=== PATIENT | male | born 1990 | race Caucasian/White ===

== ENCOUNTER 2024-12-02 23:31 | Inpatient (IN) | payer BC, OTHER ==
[~2024-12-02] VITALS: Ht 185.4 cm; Wt 91.5 kg
--- NOTE | 2024-12-02 23:44 | ED.PDOC ---
GI ASSESSMENT HPI Comments HPI: Poor Historian. 34-year-old male presents to emergency department for evaluation of two episodes of vomiting coffee-ground emesis color followed by periumbilical abdominal pain that is constant nonradiating. No alleviating or precipitating factors. Patient has normal stool color. No sick contacts. Past Medcial History: Denies any Past Surgical History: Appendectomy REVIEW OF SYSTEMS: CONSTITUTIONAL: Denies acute: fever, diaphoresis, chills, generalized weakness. HEAD: Denies acute: headache, photophobia Eyes: Denies acute: Double vision, vision loss, eye pain, eye discharge. EARS: Denies acute: tinnitus, hearing loss, ear discharge, ear pain, THROAT: Denies acute: sore throat, swelling, difficulty swallowing , pain with swallowing, change in voice. NECK: Denies acute: neck pain, neck swelling, stiff neck. HEART: Denies acute : chest pain, palpitations, LUNGS: Denies acute: SOB, wheezing, cough, hemoptysis ABDOMEN: Denies acute: , diarrhea, melena , hematemesis, hematochezia SKIN: Denies acute: rash, redness, lesions, itchiness. EXTREMITIES: Denies acute: calf pain, numbness, tingling, weakness, denies pain in extremity. Denies acute: Low back pain. Neuro: Denies acute: focal neurological deficit, motor or sensory focal neurological deficit, tremors, seizure like activity, confusion, dizziness, change in mental status, loss of bowel or bladder function, cauda equina like symptoms. : Denies acute: dysuria, hematuria, flank pain, increase in urinary frequency. PSYCH: Denies acute: hallucination, suicidal ideation, homicidal ideation. PHYSICAL EXAM: General: no acute distress, awake and alert. Head: normocephalic, atraumatic. Neck: supple, trachea is midline, no swelling. Throat: Normal phonation. Eyes:, no erythema, no purulent discharge, no proptosis, no icterus. Heart: regular rate, regular rhythm, no significant murmur appreciated. Lungs: no apparent respiratory distress, Able to speak in full sentences. No wheezing, no rhonchi, no crackles. No stridors Clear to auscultation bilaterally. Abdomen: Periumbilical tender to palpation, non distended, soft, no guarding, no rebound, + bowel sounds. Neuro: Awake, Alert, oriented to name, self, situation, follows commands GCS=15. Speech is normal. Skin: no petechia, no purpura, no cyanosis, non-pale, not jaundice. Lower extremities: --no - Pitting edema no deformity, no focal swelling, no calf TTP. Makes eye contact. moves all four extremities. Face: no apparent facial droop. Ambulating in the ED independently. Time Seen by MD: 23:34 Reviewed Notes: Nurses Notes, Medications, Allergies Allergies: Uncoded Allergies: EAR DROPS (Allergy, Unknown, 12/02/24) Home Meds Active Scripts Pantoprazole Sodium Sesquihydr (Protonix) 40 Mg Tab, 40 MG PO BID for 30 Days, #60 TAB Prov:LATA CASE RESIDENT 12/04/24 Sucralfate (CARAFATE) 1 Gm Tab, 1 GM OR TID for 30 Days, #90 TAB Prov:LATA CASE RESIDENT 12/04/24 Information Source: Patient Was a procedure done? Was a procedure done?: No GI differential Dx Differential Diagnosis: Constipation, Diverticular disease, Esophageal rupture, Esophagitis, Gastritis/PUD, Gastroenteritis, GI hemorrhage, Inflammatory BD, Ischemic Bowel, Mass, Anemia, Esophageal Varicies, Stress Ulcer, Other X-Ray, Labs, Meds, VS Vital Signs Date Time Temp Pulse Resp B/P (MAP) Pulse Ox O2 Delivery O2 Flow Rate FiO2 12/03/24 02:47 95 18 96 Room Air* 0 21 12/03/24 02:31 98.4 86 16 139/90 (106) 96 98.4 12/02/24 23:43 98.1 101 19 144/93 (110) 96 Lab Test 12/03/24 02:08 12/02/24 23:50 Range/Units Urine Color Colorless Yellow Urine Clarity Clear Clear Urine pH 6.5 5.0-9.0 Urine Specific [place] 1.003 1.001-1.035 Urine Protein Negative Negative Urine Ketones Negative Negative Urine Blood Negative Negative /uL Urine Nitrite Negative Negative Urine Bilirubin Negative Negative Urine Urobilinogen Normal Negative mg/dL Urine Leukocyte Esterase Negative Negative /uL Urine RBC 1 0 - 3 /hpf Urine Microscopic WBC < 1 0-3 /HPF Urine Squamous Epithelial Cells None seen <5 /hpf Urine Bacteria None seen None Seen /hpf Urine Glucose Normal Normal mg/dL Urine Opiates Screen Neg NEGATIVE Urine Fentanyl Screen Neg NEGATIVE Urine Barbiturates Screen Neg NEGATIVE Urine Phencyclidine Screen Neg NEGATIVE Urine Amphetamines Screen Neg NEGATIVE Urine Benzodiazepines Screen Neg NEGATIVE Urine Cocaine Screen Neg NEGATIVE Urine Cannabinoids Screen Neg NEGATIVE White Blood Count 10.0 4.4-10.8 10^3/uL Red Blood Count 5.05 4.5-5.90 10^6/uL Hemoglobin 15.2 13.5-17.5 g/dL Hematocrit 44.5 41.0-53.0 % Mean Corpuscular Volume 88.2 80.0-100.0 fL Mean Corpuscular Hemoglobin 30.0 28.0-32.0 pg Mean Corpuscular Hemoglobin Concent 34.1 32.0-36.0 g/dL Red Cell Distribution Width 12.9 11.8-14.3 % Platelet Count 271 140-450 10^3/uL Mean Platelet Volume 7.7 6.9-10.8 fL Neutrophils (%) (Auto) 63.3 37.0-80.0 % Lymphocytes (%) (Auto) 23.1 10.0-50.0 % Monocytes (%) (Auto) 7.3 0.0-12.0 % Eosinophils (%) (Auto) 5.3 0.0-7.0 % Basophils (%) (Auto) 1.0 0.0-2.0 % Neutrophils # (Auto) 6.3 1.6-8.6 10 ^3/uL Lymphocytes # (Auto) 2.3 0.4-5.4 10 ^3/uL Monocytes # (Auto) 0.7 0-1.3 10 ^3/uL Eosinophils # (Auto) 0.5 0-0.8 10 ^3/uL Basophils # (Auto) 0.1 0-0.2 10 ^3/uL Nucleated Red Blood Cells 0.0 % Sodium Level 139 136-145 mmol/L Potassium Level 3.5 3.5-5.1 mmol/L Chloride Level 102 98-107 mmol/L Carbon Dioxide Level 30 20-31 mmol/L Anion Gap 7 5-15 Blood Urea Nitrogen 9 9-23 mg/dL Creatinine 1.06 0.700-1.30 mg/dL Glomerular Filtration Rate Calc 96 >90 mL/min BUN/Creatinine Ratio 8.5 L 10.0-20.0 Serum Glucose 101 74-106 mg/dL Lactic Acid Level 1.6 0.4-2.0 mmol/L Calcium Level 10.2 8.7-10.4 mg/dL Total Bilirubin 0.5 0.2-1.0 mg/dL Aspartate Amino Transferase (AST) 22 13-40 U/L Alanine Aminotransferase (ALT) 29 7-40 U/L Alkaline Phosphatase 84 46-116 U/L Total Protein 7.7 5.7-8.2 g/dL Albumin 4.7 3.2-4.8 g/dL Lipase 38 12-53 U/L [facility] [address] [address] Ph: [phone] DIAGNOSTIC IMAGING Diagnostic Imaging Report : [id number] Signed PATIENT: NICOLE AGUILAR ACCT: [id number] UNIT: [id number] : 1990 LOC: ER ROOM / BED: / AGE / SEX: 34 / M ADM STATUS: REG ER SERVICE [id number] ORDERING PHYSICIAN: ARTHUR STEPHENSON DO PROCEDURE(s): ABPL - CT AB PEL WO CON-NO ORAL OR IV REASON: abd pain ORDER NUMBER(s): [id number], ACCESSION NUMBER(s): [id number] CLINICAL HISTORY: abd pain TECHNIQUE: CT of the abdomen and pelvis was performed without intravenous contrast. This exam was performed according to our departmental dose optimization program. Up-to-date CT equipment and radiation dose reduction techniques are utilized as appropriate. CTDI: 8.44 DLP: 469.68 WID: COMPARISON: None FINDINGS: Lower Thorax: Unremarkable. Liver and Biliary system: Unremarkable. Spleen: Unremarkable. Adrenal Glands and Kidneys: Unremarkable. Pancreas and Retroperitoneum: Unremarkable. Aorta and Major Vessels: Unremarkable. Bowel, Mesentery and Peritoneal space: The small and large bowel loops are normal in caliber. There is mild distal colonic diverticulosis. Prior appendectomy. There is no free air or fluid collection. There is submucosal fatty deposition throughout the large bowel. Pelvis: Tiny dystrophic ossifications in the right prostate gland, otherwise unremarkable. Abdominal wall and Osseous Structures: Small fat containing umbilical hernia. No destructive osseous lesion. IMPRESSION: 1. No noncontrast evidence of acute abnormality. 2. Submucosal fatty deposition in the large bowel which may be incidental or related to prior inflammatory bowel disease. 3. Prior appendectomy. 4. Mild distal colonic diverticulosis. ATED BY: CLARISSE ABAD MD DICTATED DATE/TIME: 12/03/24115 SIGNED BY: CLARISSE ABAD MD SIGNED DATE/TIME: 12/03/24115 CC: Time of 1ST Reevaluation: 00:00 Reevaluation 1ST: Unchanged Patient Education/Counseling: Diagnosis, Treatment Family Education/Counseling: No Family Present Additional Information Patient presented with the above HPI. Hematemesis and abdominal pain workup was initiated. patient was found with the above mentioned diagnosis. the following medications were ordered: Protonix, Zofran, IV fluids the following tests were ordered: CT Abdomen/pelvis w/o contrast, EKG, UA, drug screen, lipase, lactic acid, CMP, CBC Patient ED course and VS have been stabilized. Patient has been reassessed in the ED and remained in a stable condition. Pertinent incidental findings were discussed with the patient and/or family. Patient/family voices understanding and is agreeable with plan. Patient has been observed in the ED adequate length of time to insure improvement/stability. Escalation of care considered: Consideration of escalation to observation or admission Patient was ADMITTED to the medicine team for further evaluation and treatment of their presentation. All the reports of any imaging studies that were ordered by myself were reviewed by myself. Departure 1 Departure Time of Disposition: 02:54 Impression: Primary Impression: Abdominal pain Additional Impressions: Nausea and vomiting GI bleed Disposition: ADMITTED INPATIENT Admit to: Tele Condition: Guarded e-Prescriptions Pantoprazole Sodium Sesquihydr (Protonix) 40 Mg Tab 40 MG PO BID for 30 Days, #60 TAB Prov: LATA CASE RESIDENT 12/04/24 Sucralfate (CARAFATE) 1 Gm Tab 1 GM OR TID for 30 Days, #90 TAB Prov: LATA CASE RESIDENT 12/04/24 Discharged With: Self Critical Care Note Critical Care Time?: No I personally scribed for ARTHUR STEPHENSON DO ([email or web address]) on 12/03/24 at 00:07. Electronically submitted by Franco Abel [email or web address]). I personally scribed for ARTHUR STEPHENSON DO ([email or web address]) on 12/03/24 at 01:40. Electronically submitted by Franco Abel [email or web address]). ARTHUR STEPHENSON DO Dec 02, 2024 23:44
[2024-12-03] VITALS (8 sets, daily range): BP systolic 112–132; BP diastolic 77–102; PULSE 65–95; RESP 16–18; TEMP 97.4–97.6; O2SAT 94–98
[2024-12-03 00:15] LABS: Basophils # (auto) 0.1 10 ^3/uL (0-0.2); Eosinophils # (auto) 0.5 10 ^3/uL (0-0.8); Eosinophils % (auto) 5.3 % (0.0-7.0); Hematocrit 44.5 % (41.0-53.0); Hemoglobin 15.2 g/dL (13.5-17.5); Lymphocytes # (auto) 2.3 10 ^3/uL (0.4-5.4); Lymphocytes % (auto) 23.1 % (10.0-50.0); Mean Corpuscular Hgb Conc. 34.1 g/dL (32.0-36.0); Mean Corpuscular Volume 88.2 fL (80.0-100.0); Monocytes # (auto) 0.7 10 ^3/uL (0-1.3); Monocytes % (auto) 7.3 % (0.0-12.0); Neutrophils # (auto) 6.3 10 ^3/uL (1.6-8.6); Neutrophils % (auto) 63.3 % (37.0-80.0); Platelet Count (auto) 271 10^3/uL (140-450); Red Blood Cells 5.05 10^6/uL (4.5-5.90); Red Cell Distribution Width 12.9 % (11.8-14.3)
[2024-12-03 00:24] LABS: Alanine Aminotransferase 29 U/L (7-40); Alkaline Phosphatase 84 U/L (46-116); Anion Gap 7 (5-15); Aspartate Aminotransferase 22 U/L (13-40); BUN/Creatinine Ratio 8.5 (10.0-20.0); Blood Urea Nitrogen 9 mg/dL (9-23); Calcium 10.2 mg/dL (8.7-10.4); Carbon Dioxide 30 mmol/L (20-31); Chloride 102 mmol/L (98-107); Glucose 101 mg/dL (74-106); Lipase 38 U/L (12-53); Sodium 139 mmol/L (136-145)
[2024-12-03 00:25] LABS: Albumin 4.7 g/dL (3.2-4.8); Bilirubin, Total 0.5 mg/dL (0.2-1.0); Total Protein 7.7 g/dL (5.7-8.2)
[2024-12-03 00:29] LABS: Potassium 3.5 mmol/L (3.5-5.1)
--- NOTE | 2024-12-03 01:19 | DVH ---
CLINICAL HISTORY: abd pain TECHNIQUE: CT of the abdomen and pelvis was performed without intravenous contrast. This exam was per formed according to our departmental dose optimization program. Up-to-date CT equipment and radiation dose reduction techniques are utilized as appropriate. CTDI: 8.44 DLP: 469.68 WID: COMPARISON: None FINDINGS: Lower Thorax: Unremarkable. Liver and Biliary system: Unremarkable. Spleen: Unremarkable. Adrenal Glands and Kidneys: Unremarkable. Pancreas and Retroperitoneum: Unremarkable. Aorta and Major Vessels: Unremarkable. Bowel, Mesentery and Peritoneal space: The small and large bowel loops are normal in caliber. There i s mild distal colonic diverticulosis. Prior appendectomy. There is no free air or fluid collection. T here is submucosal fatty deposition throughout the large bowel. Pelvis: Tiny dystrophic ossifications in the right prostate gland, otherwise unremarkable. Abdominal wall and Osseous Structures: Small fat containing umbilical hernia. No destructive osseous lesion. IMPRESSION: 1. No noncontrast evidence of acute abnormality. 2. Submucosal fatty deposition in the large bowel which may be incidental or related to prior inflamm atory bowel disease. 3. Prior appendectomy. 4. Mild distal colonic diverticulosis.
[2024-12-03] MEDS: PANTOPRAZOLE 40 MG/10 ML VIAL INJ IV ONE (02:44)
[2024-12-03] MEDS: ONDANSETRON HCL 4 MG/2 ML VIAL IV ONE (02:44)
[2024-12-03] MEDS: SODIUM CHLORIDE 0.9% 1,000 ML IV ONE (02:45)
[2024-12-03 02:46] LABS: Urine Bacteria None Seen /hpf (None Seen)
[2024-12-03] MEDS: HYDROcodone-ACET 5/325MG TAB PO ONE (03:00)
[2024-12-03 03:04] LABS: Urine Blood Negative /uL (Negative); Urine Clarity Clear (Clear); Urine Color Colorless (Yellow); Urine Protein, UAD Negative (Negative); Urine Specific Gravity 1.003 (1.001-1.035); Urine Squamous Epithelial Cell None Seen /hpf (<5); Urine Urobilinogen Normal (Negative); Urine WBC < 1 /HPF (0-3); Urine pH 6.5 (5.0-9.0)
[2024-12-03 03:05] LABS: Opiate Scree,Urine Neg (NEGATIVE)
[2024-12-03 03:13] LABS: Amphetamine Screen, Urine Neg (NEGATIVE); Barbiturate Scree,Urine Neg (NEGATIVE); Benzodiazephine Screen, Urine Neg (NEGATIVE); Cannabinoid Screen, Urine Neg (NEGATIVE); Cocaine Screen, Urine Neg (NEGATIVE); Phencyclidine Screen, Urine Neg (NEGATIVE)
[2024-12-03] MEDS ORDERED: ACETAMINOPHEN 325 MG TAB PO PRN (04:00)
[2024-12-03] MEDS ORDERED: ONDANSETRON HCL 4 MG/2 ML VIAL IV PRN (04:00)
[2024-12-03 04:29] LABS: Hematocrit 43.3 % (41.0-53.0); Hemoglobin 14.7 g/dL (13.5-17.5)
[2024-12-03 04:44] LABS: INR 1.02 (0.9-1.15); Partial Thromboplastin Time 28.8 SEC (24.5-34.5); Prothrombin Time 10.8 sec (9.3-11.8)
--- NOTE | 2024-12-03 05:08 | DVHHP2 ---
History of Present Illness Reason for Visit: Abdominal pain History of Present Illness 34-year-old male presents for evaluation of abdominal pain. Patient reports having two episodes of coffee-ground emesis today in the morning. He states that subsequently developed mid abdominal pain which is cramping in nature. Currently denies nausea. Denies diarrhea. No cardiac or respiratory complaints. Past Medical History Denies Past Surgical History Appendectomy Family History Noncontributory Smoke: No ALCOHOL: none Drugs: None Lives: with Family Review of Systems Review of Systems Review of systems are currently negative otherwise addressed HPI. Allergies: Uncoded Allergies: EAR DROPS (Allergy, Unknown, 12/02/24) Medications Current Medications Medications Dose Ordered Sig/Brenda Route Start Time Stop Time Status Last Admin Dose Admin Pantoprazole Sodium 40 mg DAILY IV 12/03/24 10:00 Acetaminophen/ Hydrocodone Bitart 1 tab Q4HP PRN PO 12/03/24 04:00 Ondansetron HCl 4 mg Q4HP PRN IV 12/03/24 04:00 Acetaminophen 650 mg Q6HP PRN PO 12/03/24 04:00 Exam Vital Signs Vital Signs Date Time Temp Pulse Resp B/P (MAP) Pulse Ox O2 Delivery O2 Flow Rate FiO2 12/03/24 02:47 95 18 96 Room Air* 0 21 12/03/24 02:31 98.4 139/90 (106) 98.4 Exam Gen: 34-year-old male in mild distress. Skin: Warm, dry, normal color and texture, no rash. HEENT: Normocephalic atraumatic, mucous membranes moist and pink. Neck: Cervical and supraclavicular nodes normal without enlargement, trachea is midline, thyroid gland is normal without masses. Pulmonary: Clear to auscultation and percussion bilaterally. Cardiac: Regular rate and rhythm. No murmur Abdomen: Soft, nontender, nondistended, bowel sounds present all 4 quadrants, no guarding, no rigidity, no organomegaly. Extremities: No cyanosis, clubbing, no edema Neuro: Cranial nerves II through XII grossly intact, normal affect and speech, no focal motor deficits. Labs/Xrays ORDERING PHYSICIAN: ARTHUR STEPHENSON DO PROCEDURE(s): ABPL - CT AB PEL WO CON-NO ORAL OR IV REASON: abd pain ORDER NUMBER(s): [id number], ACCESSION NUMBER(s): [id number] CLINICAL HISTORY: abd pain TECHNIQUE: CT of the abdomen and pelvis was performed without intravenous contrast. This exam was performed according to our departmental dose optim ization program. Up-to-date CT equipment and radiation dose reduction techniques are utilized as appropriate. CTDI: 8.44 DLP: 469.68 WID: COMPARISON: None FINDINGS: Lower Thorax: Unremarkable. Liver and Biliary system: Unremarkable. Spleen: Unremarkable. Adrenal Glands and Kidneys: Unremarkable. Pancreas and Retroperitoneum: Unremarkable. Aorta and Major Vessels: Unremarkable. Bowel, Mesentery and Peritoneal space: The small and large bowel loops are normal in caliber. There is mild distal colonic diverticulosis. Prior appendectomy. There is no free air or fluid collection. There is submucosal fatty deposition throughout the large bowel. Pelvis: Tiny dystrophic ossifications in the right prostate gland, otherwise unremarkable. Abdominal wall and Osseous Structures: Small fat containing umbilical hernia. No destructive osseous lesion. IMPRESSION: 1. No noncontrast evidence of acute abnormality. 2. Submucosal fatty deposition in the large bowel which may be incidental or related to prior inflammatory bowel disease. 3. Prior appendectomy. 4. Mild distal colonic diverticulosis. ATED BY: CLARISSE ABAD MD DICTATED DATE/TIME: 12/03/24 0116 Labs Test 12/03/24 04:15 12/03/24 02:08 12/02/24 23:50 Range/Units Hemoglobin 14.7 13.5-17.5 g/dL Hematocrit 43.3 41.0-53.0 % Prothrombin Time 10.8 9.3-11.8 sec Prothrombin Time INR 1.02 0.9-1.15 Activated Partial Thromboplast Time 28.8 24.5-34.5 SEC Urine Color Colorless Yellow Urine Clarity Clear Clear Urine pH 6.5 5.0-9.0 Urine Specific [place] 1.003 1.001-1.035 Urine Protein Negative Negative Urine Ketones Negative Negative Urine Blood Negative Negative /uL Urine Nitrite Negative Negative Urine Bilirubin Negative Negative Urine Urobilinogen Normal Negative mg/dL Urine Leukocyte Esterase Negative Negative /uL Urine RBC 1 0 - 3 /hpf Urine Microscopic WBC < 1 0-3 /HPF Urine Squamous Epithelial Cells None seen <5 /hpf Urine Bacteria None seen None Seen /hpf Urine Glucose Normal Normal mg/dL Urine Opiates Screen Neg NEGATIVE Urine Fentanyl Screen Neg NEGATIVE Urine Barbiturates Screen Neg NEGATIVE Urine Phencyclidine Screen Neg NEGATIVE Urine Amphetamines Screen Neg NEGATIVE Urine Benzodiazepines Screen Neg NEGATIVE Urine Cocaine Screen Neg NEGATIVE Urine Cannabinoids Screen Neg NEGATIVE White Blood Count 10.0 4.4-10.8 10^3/uL Red Blood Count 5.05 4.5-5.90 10^6/uL Mean Corpuscular Volume 88.2 80.0-100.0 fL Mean Corpuscular Hemoglobin 30.0 28.0-32.0 pg Mean Corpuscular Hemoglobin Concent 34.1 32.0-36.0 g/dL Red Cell Distribution Width 12.9 11.8-14.3 % Platelet Count 271 140-450 10^3/uL Mean Platelet Volume 7.7 6.9-10.8 fL Neutrophils (%) (Auto) 63.3 37.0-80.0 % Lymphocytes (%) (Auto) 23.1 10.0-50.0 % Monocytes (%) (Auto) 7.3 0.0-12.0 % Eosinophils (%) (Auto) 5.3 0.0-7.0 % Basophils (%) (Auto) 1.0 0.0-2.0 % Neutrophils # (Auto) 6.3 1.6-8.6 10 ^3/uL Lymphocytes # (Auto) 2.3 0.4-5.4 10 ^3/uL Monocytes # (Auto) 0.7 0-1.3 10 ^3/uL Eosinophils # (Auto) 0.5 0-0.8 10 ^3/uL Basophils # (Auto) 0.1 0-0.2 10 ^3/uL Nucleated Red Blood Cells 0.0 % Sodium Level 139 136-145 mmol/L Potassium Level 3.5 3.5-5.1 mmol/L Chloride Level 102 98-107 mmol/L Carbon Dioxide Level 30 20-31 mmol/L Anion Gap 7 5-15 Blood Urea Nitrogen 9 9-23 mg/dL Creatinine 1.06 0.700-1.30 mg/dL Glomerular Filtration Rate Calc 96 >90 mL/min BUN/Creatinine Ratio 8.5 L 10.0-20.0 Serum Glucose 101 74-106 mg/dL Lactic Acid Level 1.6 0.4-2.0 mmol/L Calcium Level 10.2 8.7-10.4 mg/dL Total Bilirubin 0.5 0.2-1.0 mg/dL Aspartate Amino Transferase (AST) 22 13-40 U/L Alanine Aminotransferase (ALT) 29 7-40 U/L Alkaline Phosphatase 84 46-116 U/L Total Protein 7.7 5.7-8.2 g/dL Albumin 4.7 3.2-4.8 g/dL Lipase 38 12-53 U/L Assessment/Plan Assessment/Plan Assessment Acute abdominal pain ? Hematemesis Mild anemia Plan Admit the patient to [facility] [place] to the hospitalist GI consultation Clear liquid diet Gastric occult pending Continue treatment per orders. Plan discussed with: Patient My Orders Orders - JEMIMA SWEET Procedure Category Date Status Time * Gi D[facility] [employer] CONS 12/03/24 Transmitted 03:58 Pantoprazole PHA 12/03/24 In Process (Protonix) 10:00 Admit ADMIT 12/03/24 Transmitted 03:58 Hydrocodone-Acet PHA 12/03/24 In Process 5/325mg Tab ([place] 04:00 Ondansetron Hcl PHA 12/03/24 In Process (Zofran) 04:00 Complete Blood Count LAB 12/04/24 Verified 04:00 Condition: Stable OFE 12/03/24 In Process 03:58 Acetaminophen Tablet PHA 12/03/24 In Process (Tylenol Tablet) 04:00 Clear Liq Diet DIET 12/03/24 Transmitted Breakfast Bedrest With Bathroom OFE 12/03/24 In Process Privileg 03:58 Type And Screen BBK 12/03/24 In Process 03:58 Date of Service: Dec 03, 2024 Billing Provider: JEMIMA SWEET Common Visit Codes: [id number] INP/OBS CARE (MOD) JEMIMA SWEET Dec 03, 2024 05:08
[2024-12-03] MEDS: HYDROcodone-ACET 5/325MG TAB PO PRN (06:16)
[2024-12-03] MEDS: PANTOPRAZOLE 40 MG/10 ML VIAL INJ IV SCH ×2 (10:00→21:21)
[2024-12-03] MEDS ORDERED: LIDOCAINE 2% (LOCAL ANESTH.) PF 5ml SDV ONE (13:23)
[2024-12-03] MEDS ORDERED: PROPOFOL 10 MG/ML 20 ML IV ONE ×2 (13:23→13:32)
--- NOTE | 2024-12-03 13:24 | DVHINCON2 ---
Date of service: Dec 03, 2024 Referring Physician Yimi Rodriguez Reason for Consultation Upper GI bleed History of Present Illness 34-year-old male presents for evaluation of abdominal pain. Patient reports having two episodes of coffee-ground emesis today in the morning. He states that subsequently developed mid abdominal pain which is cramping in nature. Currently denies nausea. Denies diarrhea. No cardiac or respiratory complaints. Patient had his last endoscopy over 10 years ago in 2011. The patient does have history of intermittent alcohol use Past Medical History Past Medical History Denies Past Surgical History Past Surgical History Appendectomy Family History: Patient reports no known family medical history. Allergies: Uncoded Allergies: EAR DROPS (Allergy, Unknown, 12/02/24) Current Medications Current Medications Medications (Trade) Dose Ordered Sig/Brenda Route PRN Reason Start Time Stop Time Status Last Admin Pantoprazole Sodium (Protonix) 40 mg DAILY IV 12/03/24 10:00 12/03/24 10:00 Acetaminophen/ Hydrocodone Bitart ([place] 5/325MG Tab) 1 tab Q4HP PRN PO MODERATE PAIN (4-6 PAIN SCALE) 12/03/24 04:00 12/03/24 06:16 Ondansetron HCl (Zofran) 4 mg Q4HP PRN IV NAUSEA / VOMITING 12/03/24 04:00 Acetaminophen (Tylenol Tablet) 650 mg Q6HP PRN PO PAIN SCALE 1-3 OR TEMP>100.4 12/03/24 04:00 Vital Signs Vital Signs Date Time Temp Pulse Resp B/P (MAP) Pulse Ox O2 Delivery O2 Flow Rate FiO2 12/03/24 08:43 97.4 81 18 112/77 (89) 98 97.4 12/03/24 05:49 Room Air* 0 21 Physical Exam Gen: 34-year-old male in no distress. Skin: Warm, dry, normal color and texture, no rash. HEENT: Normocephalic atraumatic, mucous membranes moist and pink. Neck: Cervical and supraclavicular nodes normal without enlargement, trachea is midline, thyroid gland is normal without masses. Pulmonary: Clear to auscultation and percussion bilaterally. Cardiac: Regular rate and rhythm. No murmur Abdomen: Soft, nontender, nondistended, bowel sounds present all 4 quadrants, no guarding, no rigidity, no organomegaly. Extremities: No cyanosis, clubbing, no edema Neuro: Cranial nerves II through XII grossly intact, normal affect and speech, no focal motor deficits. Labs/Diagnostic Data Labs Test 12/03/24 04:15 12/03/24 02:08 12/02/24 23:50 Range/Units Hemoglobin 14.7 13.5-17.5 g/dL Hematocrit 43.3 41.0-53.0 % Prothrombin Time 10.8 9.3-11.8 sec Prothrombin Time INR 1.02 0.9-1.15 Activated Partial Thromboplast Time 28.8 24.5-34.5 SEC Urine Color Colorless Yellow Urine Clarity Clear Clear Urine pH 6.5 5.0-9.0 Urine Specific [place] 1.003 1.001-1.035 Urine Protein Negative Negative Urine Ketones Negative Negative Urine Blood Negative Negative /uL Urine Nitrite Negative Negative Urine Bilirubin Negative Negative Urine Urobilinogen Normal Negative mg/dL Urine Leukocyte Esterase Negative Negative /uL Urine RBC 1 0 - 3 /hpf Urine Microscopic WBC < 1 0-3 /HPF Urine Squamous Epithelial Cells None seen <5 /hpf Urine Bacteria None seen None Seen /hpf Urine Glucose Normal Normal mg/dL Urine Opiates Screen Neg NEGATIVE Urine Fentanyl Screen Neg NEGATIVE Urine Barbiturates Screen Neg NEGATIVE Urine Phencyclidine Screen Neg NEGATIVE Urine Amphetamines Screen Neg NEGATIVE Urine Benzodiazepines Screen Neg NEGATIVE Urine Cocaine Screen Neg NEGATIVE Urine Cannabinoids Screen Neg NEGATIVE White Blood Count 10.0 4.4-10.8 10^3/uL Red Blood Count 5.05 4.5-5.90 10^6/uL Mean Corpuscular Volume 88.2 80.0-100.0 fL Mean Corpuscular Hemoglobin 30.0 28.0-32.0 pg Mean Corpuscular Hemoglobin Concent 34.1 32.0-36.0 g/dL Red Cell Distribution Width 12.9 11.8-14.3 % Platelet Count 271 140-450 10^3/uL Mean Platelet Volume 7.7 6.9-10.8 fL Neutrophils (%) (Auto) 63.3 37.0-80.0 % Lymphocytes (%) (Auto) 23.1 10.0-50.0 % Monocytes (%) (Auto) 7.3 0.0-12.0 % Eosinophils (%) (Auto) 5.3 0.0-7.0 % Basophils (%) (Auto) 1.0 0.0-2.0 % Neutrophils # (Auto) 6.3 1.6-8.6 10 ^3/uL Lymphocytes # (Auto) 2.3 0.4-5.4 10 ^3/uL Monocytes # (Auto) 0.7 0-1.3 10 ^3/uL Eosinophils # (Auto) 0.5 0-0.8 10 ^3/uL Basophils # (Auto) 0.1 0-0.2 10 ^3/uL Nucleated Red Blood Cells 0.0 % Sodium Level 139 136-145 mmol/L Potassium Level 3.5 3.5-5.1 mmol/L Chloride Level 102 98-107 mmol/L Carbon Dioxide Level 30 20-31 mmol/L Anion Gap 7 5-15 Blood Urea Nitrogen 9 9-23 mg/dL Creatinine 1.06 0.700-1.30 mg/dL Glomerular Filtration Rate Calc 96 >90 mL/min BUN/Creatinine Ratio 8.5 L 10.0-20.0 Serum Glucose 101 74-106 mg/dL Lactic Acid Level 1.6 0.4-2.0 mmol/L Calcium Level 10.2 8.7-10.4 mg/dL Total Bilirubin 0.5 0.2-1.0 mg/dL Aspartate Amino Transferase (AST) 22 13-40 U/L Alanine Aminotransferase (ALT) 29 7-40 U/L Alkaline Phosphatase 84 46-116 U/L Total Protein 7.7 5.7-8.2 g/dL Albumin 4.7 3.2-4.8 g/dL Lipase 38 12-53 U/L CT SCAN ABD PELVIS IMPRESSION: 1. No noncontrast evidence of acute abnormality. 2. Submucosal fatty deposition in the large bowel which may be incidental or related to prior inflammatory bowel disease. 3. Prior appendectomy. 4. Mild distal colonic diverticulosis. Problems(with codes): (1) GI bleed (2) Abdominal pain (3) Nausea and vomiting Plan/Recommendation Plan Keep the patient NPO Start Protonix 40 mg IV q.12 hours I am going to schedule him for an endoscopy to rule out peptic ulcer disease rule out GERD Patient will be started on diet and discharge planning will be initiated after the endoscopy Further recommendations after the above Plan discussed with: Patient, Other (ER Nurse) TIMMY BRIDGES MD Dec 03, 2024 13:24
--- NOTE | 2024-12-03 13:41 | DVHOP2 ---
Operative Report DATE OF OPERATION: 12/03/24 PROCEDURE: Upper Endoscopy with biopsy. PREOPERATIVE INDICATION: The patient is a 34 -year-old male undergoing endoscopy for nausea vomiting upper GI bleed POSTOPERATIVE DIAGNOSES: 1. 3 cm sliding-type hiatal hernia with acute grade B to C linear erosive esophagitis with the acute ulcers extending into the distal 5 cm of the esophagus 2. Otherwise normal examination up to the 2nd and 3rd part of the duodenum with no fresh or old blood in the stomach however there was increase oozing from esophageal biopsy sites PROCEDURE PERFORMED BY: Timmy Pedroza GI NURSE: Royal SCOPE: Olympus videoendoscope. ASA CLASS: 2. PREOPERATIVE MEDICATIONS: Mac sedation, Salas Schaffer PROCEDURE IN DETAIL: After obtaining an informed consent, the patient was placed on left lateral decubitus position. The patient was then sedated with the above medications. A bite block was placed between his teeth. The endoscope was then passed through the oropharynx, into the esophagus, and through the stomach and pylorus up to the second and third part of the duodenum. The endoscope was then withdrawn. The 2nd and 3rd part of the duodenum and the duodenal bulb were normal. There was good bile drainage. Duodenal biopsies were obtained. The pre-pyloric area antrum and body showed minimal gastritis. Gastric biopsies were obtained. On retroflexion a hiatal hernia was noted. The fundus cardia and angularis were normal. There was no fresh or old blood in the upper GI tract. The endoscope was then withdrawn into the distal esophagus where the patient had a 3 cm sliding-type hiatal hernia. He had acute linear erosive esophagitis with acute esophageal ulcers extending into the distal 5 cm of the distal esophagus Esophageal biopsies were obtained and increase oozing was noted from the esophageal biopsy sites. The remaining distal and proximal esophagus and oropharynx were unremarkable The patient tolerated the procedure well without difficulty. COMPLICATIONS : None SPECIMENS: Duodenal biopsies Gastric biopsies Esophageal biopsies DISPOSITION: Transfer back to the floor Stable PLAN: 1. Await for biopsy result 2. Will place pt on Protonix 40 mg bid IV 3. Carafate suspension 1 g p.o. 4 times a day 4. DC aspirin NSAIDs smoking alcohol 5. Lifestyle and dietary modifications for GERD 6. Outpatient follow up with me in 4-6 weeks to review results and discuss further management 7. Monitor labs and check lipase level as the patient had a history of moderate alcohol intake earlier this week TIMMY PEDROZA MD 22, 2025 13:41
--- NOTE | 2024-12-03 16:51 | DVHPNRES ---
Progress Note Date Seen: Dec 03, 2024 Resident Creating Document: LATA CASE RESIDENT Medical Necessity Reason Pt with a Central, PICC or Fol: No Medical Necessity Reason coffee ground emesis Subjective Review of Systems This is a 34-year-old male with a history for heavy alcohol use and GERD presented to the ED after having have a coffee ground emesis twice yesterday. According to patient, he drank about 10 bottle of beer and whisky. At , he also took hydrocodone. The following day, patient started having vomiting which was dark or coffee-ground in color. This was the first of such episodes. Thus prompting him to come to the ED. Patient denied abdominal pain, headache, dizziness or weakness. Vitals were stable and Lab work were grossly unremarkable. Hemoglobin was 15.2. Patient was taken to the GI lab today for EGD. EGD reports showed 3 cm sliding-type hiatal hernia with acute grade B to C linear erosive esophagitis with the acute ulcers extending into the distal 5 cm of the esophagus. 2. Otherwise normal examination up to the 2nd and 3rd part of the duodenum with no fresh or old blood in the stomach however there was increase oozing from esophageal biopsy sites Constitutional: Denies fever no chills no feeling of malaise HEENT: Denies headache, ear pain, ear discharges, conjunctivitis, nasal discharge throat pain Cardiovascular: Denies chest pain, palpitation, orthopnea, PND, or pedal edema Respiratory: Denies shortness of breath, cough cough, sputum production, hemoptysis, GI: Denies abdominal pain, nausea, vomiting, diarrhea, hematemesis, hematochezia, : Denies frequency, urgency, hematuria, Endocrine: Denies unintentional weight gain or weight loss, feeling of hot flashes, Skyler: Denies easy bruising, bleeding disorders, epistaxis Musculoskeletal: Denies joint pains, muscle aches Psych: No evidence of depression, amy, suicidal ideation Objective vital signs Vital Sign Date Time Temp Pulse Resp B/P (MAP) Pulse Ox O2 Delivery O2 Flow Rate FiO2 12/03/24 14:58 65 18 Room Air* 0 21 12/03/24 14:45 114/82 (93) 97 12/03/24 13:35 98.0 98.0 medications Current Medications Medications Dose Ordered Sig/Brenda Route Start Time Stop Time Status Last Admin Dose Admin Acetaminophen/ Hydrocodone Bitart 1 tab Q4HP PRN PO 12/03/24 04:00 12/03/24 06:16 1 TAB Ondansetron HCl 4 mg Q4HP PRN IV 12/03/24 04:00 Acetaminophen 650 mg Q6HP PRN PO 12/03/24 04:00 Sucralfate 1 gm QID@0600,1130,1700,2200 PO 12/03/24 17:00 Pantoprazole Sodium 40 mg BID IV 12/03/24 22:00 Examination General Appearance: Alert, Oriented X3, Cooperative, No acute distress HEENT: Atraumatic, PERRLA, EOMI, Mucous membrane moist/pink Respiratory: Clear to auscultation, Normal air movement Cardiovascular: Regular rate, Normal S1, Normal S2, No murmurs, no chest wall tenderness Abdominal: NO distention, no tenderness, bowel sounds present, no scars noted Extremities: No clubbing, No cyanosis, No edema, Normal pulses, No tenderness/swelling Skin: No rashes, No breakdown, No significant lesion Neuro: Normal gait, Normal speech, Strength at 5/5 X4 ext, Normal tone, Sensation intact, Cranial nerves 3-12 NL, Reflexes 2+ Psych/Mental Status: Mental status NL, Mood NL laboratory and microbiology Laboratory Tests 12/03/24 04:15 12/02/24 23:50 Test 12/02/24 23:50 Range/Units Serum Glucose 101 74-106 mg/dL Problem List/Assessment/Plan Problem List/Assessment/Plan Assessment Possible upper GI bleed 3 cm sliding-type hiatal hernia Erosive esophagitis with the acute ulcers Alcohol abuse GERD Plan Status post EGD Protonix 40 mg bid IV Carafate suspension 1 g p.o. 4 times a day DC aspirin NSAIDs smoking alcohol Lifestyle and dietary modifications for GERD We will reassess patient in the morning and everything goes well we will discharge patient home tomorrow. Patient counseled about alcohol cessation. We presented to have social media assistant give him resources to assist him cut down alcohol consumption. However, patient declined the offer and said he believes he can do it by himself. Status: Full Goal of care discussed for more than 35 minutes Case and plan discussed with Dr. Rae Plan discussed with: Patient LATA CASE RESIDENT Dec 03, 2024 16:51
[2024-12-03] MEDS: SUCRALFATE 1 GM/10 ML ORAL SUSP PO SCH (17:20)
[2024-12-04 01:00] VITALS: BP 109/70; PULSE 78; RESP 18; TEMP 97.4; O2SAT 97
[2024-12-04 05:00] VITALS: BP 129/78; PULSE 64; RESP 17; TEMP 97.4; O2SAT 94
[2024-12-04 06:49] LABS: Basophils # (auto) 0 10 ^3/uL (0-0.2); Basophils % (auto) 0.7 % (0.0-2.0); Eosinophils # (auto) 0.4 10 ^3/uL (0-0.8); Eosinophils % (auto) 9.8 % (0.0-7.0); Hemoglobin 14.5 g/dL (13.5-17.5); Lymphocytes # (auto) 1.3 10 ^3/uL (0.4-5.4); Lymphocytes % (auto) 29.8 % (10.0-50.0); Mean Corpuscular Hemoglobin 30.3 pg (28.0-32.0); Mean Corpuscular Hgb Conc. 34.7 g/dL (32.0-36.0); Mean Corpuscular Volume 87.6 fL (80.0-100.0); Monocytes # (auto) 0.4 10 ^3/uL (0-1.3); Monocytes % (auto) 9.8 % (0.0-12.0); Neutrophils # (auto) 2.1 10 ^3/uL (1.6-8.6); Neutrophils % (auto) 49.9 % (37.0-80.0); Nucleated Red Blood Cells % 0.2 %; Platelet Count (auto) 198 10^3/uL (140-450); Red Blood Cells 4.79 10^6/uL (4.5-5.90); Red Cell Distribution Width 12.9 % (11.8-14.3); White Blood Cell 4.3 10^3/uL (4.4-10.8)
[2024-12-04 08:00] VITALS: RESP 16
[2024-12-04 08:51] VITALS: BP 126/83; PULSE 69; RESP 19; TEMP 97.8; O2SAT 97
[2024-12-04] MEDS ORDERED: PANT40TA2 PO (11:51)
[2024-12-04] MEDS ORDERED: SUCR1TAB31 OR (11:51)
--- NOTE | 2024-12-04 12:04 | DVHDSRES ---
Discharge Summary Date of Admission Resident Creating Document: LATA CASE RESIDENT Dec 03, 2024 at 03:58 Date of Discharge: Dec 04, 2024 Admitting Diagnosis Hematemesis Alcohol abuse Labs/Diagnostic Data: PATIENT: NICOLE AGUILARCCT: [id number] UNIT: [id number] : 1990 LOC: ER ROOM / BED: / AGE / SEX: 34 / M ADM STATUS: REG ER SERVICE [id number] ORDERING PHYSICIAN: ARTHUR STEPHENSON DO PROCEDURE(s): ABPL - CT AB PEL WO CON-NO ORAL OR IV REASON: abd pain ORDER NUMBER(s): [id number], ACCESSION NUMBER(s): [id number] CLINICAL HISTORY: abd pain TECHNIQUE: CT of the abdomen and pelvis was performed without intravenous contrast. This exam was performed according to our departmental dose optimization program. Up-to-date CT equipment and radiation dose reduction techniques are utilized as appropriate. CTDI: 8.44 DLP: 469.68 WID: COMPARISON: None FINDINGS: Lower Thorax: Unremarkable. Liver and Biliary system: Unremarkable. Spleen: Unremarkable. Adrenal Glands and Kidneys: Unremarkable. Pancreas and Retroperitoneum: Unremarkable. Aorta and Major Vessels: Unremarkable. Bowel, Mesentery and Peritoneal space: The small and large bowel loops are normal in caliber. There is mild distal colonic diverticulosis. Prior appendectomy. There is no free air or fluid collection. There is submucosal fatty deposition throughout the large bowel. Pelvis: Tiny dystrophic ossifications in the right prostate gland, otherwise unremarkable. Abdominal wall and Osseous Structures: Small fat containing umbilical hernia. No destructive osseous lesion. IMPRESSION: 1. No noncontrast evidence of acute abnormality. 2. Submucosal fatty deposition in the large bowel which may be incidental or related to prior inflammatory bowel disease. 3. Prior appendectomy. 4. Mild distal colonic diverticulosis. ATED BY: CLARISSE ABAD MD DICTATED DATE/TIME: 12/03/24 0116 Laboratory Results Test 12/04/24 06:28 12/03/24 04:15 12/03/24 02:08 12/02/24 23:50 White Blood Count 4.3 10^3/uL (4.4-10.8) Red Blood Count 4.79 10^6/uL (4.5-5.90) Hemoglobin 14.5 g/dL (13.5-17.5) Hematocrit 42.0 % (41.0-53.0) Mean Corpuscular Volume 87.6 fL (80.0-100.0) Mean Corpuscular Hemoglobin 30.3 pg (28.0-32.0) Mean Corpuscular Hemoglobin Concent 34.7 g/dL (32.0-36.0) Red Cell Distribution Width 12.9 % (11.8-14.3) Platelet Count 198 10^3/uL (140-450) Mean Platelet Volume 7.4 fL (6.9-10.8) Neutrophils (%) (Auto) 49.9 % (37.0-80.0) Lymphocytes (%) (Auto) 29.8 % (10.0-50.0) Monocytes (%) (Auto) 9.8 % (0.0-12.0) Eosinophils (%) (Auto) 9.8 % (0.0-7.0) Basophils (%) (Auto) 0.7 % (0.0-2.0) Neutrophils # (Auto) 2.1 10 ^3/uL (1.6-8.6) Lymphocytes # (Auto) 1.3 10 ^3/uL (0.4-5.4) Monocytes # (Auto) 0.4 10 ^3/uL (0-1.3) Eosinophils # (Auto) 0.4 10 ^3/uL (0-0.8) Basophils # (Auto) 0 10 ^3/uL (0-0.2) Nucleated Red Blood Cells 0.2 % Prothrombin Time 10.8 sec (9.3-11.8) Prothrombin Time INR 1.02 (0.9-1.15) Activated Partial Thromboplast Time 28.8 SEC (24.5-34.5) Urine Color Colorless (Yellow) Urine Clarity Clear (Clear) Urine pH 6.5 (5.0-9.0) Urine Specific [place] 1.003 (1.001-1.035) Urine Protein Negative (Negative) Urine Ketones Negative (Negative) Urine Blood Negative /uL (Negative) Urine Nitrite Negative (Negative) Urine Bilirubin Negative (Negative) Urine Urobilinogen Normal mg/dL (Negative) Urine Leukocyte Esterase Negative /uL (Negative) Urine RBC 1 /hpf (0 - 3) Urine Microscopic WBC < 1 /HPF (0-3) Urine Squamous Epithelial Cells None seen /hpf (<5) Urine Bacteria None seen /hpf (None Seen) Urine Glucose Normal mg/dL (Normal) Urine Opiates Screen Neg (NEGATIVE) Urine Fentanyl Screen Neg (NEGATIVE) Urine Barbiturates Screen Neg (NEGATIVE) Urine Phencyclidine Screen Neg (NEGATIVE) Urine Amphetamines Screen Neg (NEGATIVE) Urine Benzodiazepines Screen Neg (NEGATIVE) Urine Cocaine Screen Neg (NEGATIVE) Urine Cannabinoids Screen Neg (NEGATIVE) Sodium Level 139 mmol/L (136-145) Potassium Level 3.5 mmol/L (3.5-5.1) Chloride Level 102 mmol/L (98-107) Carbon Dioxide Level 30 mmol/L (20-31) Anion Gap 7 (5-15) Blood Urea Nitrogen 9 mg/dL (9-23) Creatinine 1.06 mg/dL (0.700-1.30) Glomerular Filtration Rate Calc 96 mL/min (>90) BUN/Creatinine Ratio 8.5 (10.0-20.0) Serum Glucose 101 mg/dL (74-106) Lactic Acid Level 1.6 mmol/L (0.4-2.0) Calcium Level 10.2 mg/dL (8.7-10.4) Total Bilirubin 0.5 mg/dL (0.2-1.0) Aspartate Amino Transferase (AST) 22 U/L (13-40) Alanine Aminotransferase (ALT) 29 U/L (7-40) Alkaline Phosphatase 84 U/L (46-116) Total Protein 7.7 g/dL (5.7-8.2) Albumin 4.7 g/dL (3.2-4.8) Lipase 38 U/L (12-53) Other Laboratory Tests 12/04/24 06:28 12/02/24 23:50 Brief Hx & Hospital Course: Hospital Course This 34-year-old male with a history for heavy alcohol use and GERD presented to the ED after having have a coffee ground emesis twice yesterday. According to patient, he drank about 10 bottle of beer and whisky with hydrocodone. The following day, patient started vomiting which was dark or coffee-ground in color. This was the first of such episodes. Thus prompting him to come to the ED. Patient denied abdominal pain, headache, dizziness or weakness. Vitals were stable and Lab work were grossly unremarkable. Hemoglobin was 15.2. Patient was taken to the GI lab today for EGD. EGD reports showed 3 cm sliding-type hiatal hernia with acute grade B to C linear erosive esophagitis with the acute ulcers extending into the distal 5 cm of the esophagus. 2. Otherwise normal examination up to the 2nd and 3rd part of the duodenum with no fresh or old blood in the stomach however there was increase oozing from esophageal biopsy sites. His hb 14.5 in his electrolytes are within normal limit. Patient overall is stable. No signs of alcohol withdrawal. Overall he is stable for discharge. Examination General Appearance: Alert, Oriented X3, Cooperative, No acute distress HEENT: Atraumatic, PERRLA, EOMI, Mucous membrane moist/pink Respiratory: Clear to auscultation, Normal air movement Cardiovascular: Regular rate, Normal S1, Normal S2, No murmurs, no chest wall tenderness Abdominal: NO distention, no tenderness, bowel sounds present, no scars noted Extremities: No clubbing, No cyanosis, No edema, Normal pulses, No tenderness/swelling Skin: No rashes, No breakdown, No significant lesion Neuro: Normal gait, Normal speech, Strength at 5/5 X4 ext, Normal tone, Sensation intact, Cranial nerves 3-12 NL, Reflexes 2+ Psych/Mental Status: Mental status NL, Mood NL Diagnosis Possible upper GI bleed Sliding-type hiatal hernia Erosive esophagitis with the acute ulcers Alcohol abuse GERD Discharge plan Continue Protonix 40 mg bid IV Carafate suspension 1 g p.o. 4 times a day DC aspirin NSAIDs smoking alcohol Lifestyle and dietary modifications for GERD Outpatient follow up with me in 4-6 weeks to review results and discuss further management Follow-up discharge Clinic on in 7 days Patient counseled about alcohol cessation. We recommended for him to have health care social worker provide him resources to assist him cut down alcohol consumption. However, patient declined the offer and said he believes he can do it by himself. Discharge plan was discussed and reviewed with Dr. Rae Consults/Reason for consult Reason for Consultation Upper GI bleed Operations or Procedures Operative Report DATE OF OPERATION: 12/03/24 PROCEDURE: Upper Endoscopy with biopsy. PREOPERATIVE INDICATION: The patient is a 34 -year-old male undergoing endoscopy for nausea vomiting upper GI bleed POSTOPERATIVE DIAGNOSES: 1. 3 cm sliding-type hiatal hernia with acute grade B to C linear erosive esophagitis with the acute ulcers extending into the distal 5 cm of the esophagus 2. Otherwise normal examination up to the 2nd and 3rd part of the duodenum with no fresh or old blood in the stomach however there was increase oozing from esophageal biopsy sites PROCEDURE PERFORMED BY: Timmy Bridges GI NURSE: Royal SCOPE: Olympus videoendoscope. ASA CLASS: 2. PREOPERATIVE MEDICATIONS: Salas Mcgraw PROCEDURE IN DETAIL: After obtaining an informed consent, the patient was placed on left lateral decubitus position. The patient was then sedated with the above medications. A bite block was placed between his teeth. The endoscope was then passed through the oropharynx, into the esophagus, and through the stomach and pylorus up to the second and third part of the duodenum. The endoscope was then withdrawn. The 2nd and 3rd part of the duodenum and the duodenal bulb were normal. There was good bile drainage. Duodenal biopsies were obtained. The pre-pyloric area antrum and body showed minimal gastritis. Gastric biopsies were obtained. On retroflexion a hiatal hernia was noted. The fundus cardia and angularis were normal. There was no fresh or old blood in the upper GI tract. The endoscope was then withdrawn into the distal esophagus where the patient had a 3 cm sliding-type hiatal hernia. He had acute linear erosive esophagitis with acute esophageal ulcers extending into the distal 5 cm of the distal esophagus Esophageal biopsies were obtained and increase oozing was noted from the esophageal biopsy sites. The remaining distal and proximal esophagus and oropharynx were unremarkable The patient tolerated the procedure well without difficulty. COMPLICATIONS : None SPECIMENS: Duodenal biopsies Gastric biopsies Esophageal biopsies DISPOSITION: Transfer back to the floor Stable PLAN: 1. Await for biopsy result 2. Will place pt on Protonix 40 mg bid IV 3. Carafate suspension 1 g p.o. 4 times a day 4. DC aspirin NSAIDs smoking alcohol 5. Lifestyle and dietary modifications for GERD 6. Outpatient follow up with me in 4-6 weeks to review results and discuss further management 7. Monitor labs and check lipase level as the patient had a history of moderate alcohol intake earlier this week TIMMY BRIDGES MD Dec 03, 2024 13:41 DICTATED BY:TIMMY BRIDGES MD DICTATED DATE/TIME:12/03/24 1341 Condition at Discharge: Good Final Diagnosis/Problems List Possible upper GI bleed Sliding-type hiatal hernia Erosive esophagitis with the acute ulcers Alcohol abuse GERD Discharge Disposition: Home Discharge Instruct/Medications Diet: Regular Diet comment: Abstein from alcohol Activity: No Restrictions, As Tolerated Follow Up/Referral: 7 Medications: protonixn 40 mg bid carafate 1 g p.o. 4 times a day Discharge Statement: "Patient was advised to return to the ER or call 911 if any headaches, dizziness, shortness of breath, chest pain, abdominal pain, bleeding, fevers, or worsening of medical condition. Patient was counseled about treatment plan, medications, possible side effects, patientverbalized understanding. All questions were answered to the best of my ability. This discharge took greater then 30 minutes in planning, reviewing documentation, counseling the patient, and discussing with other team members." ASSESSMENT ASSESSMENT Assessment Possible upper GI bleed Sliding-type hiatal hernia Erosive esophagitis with the acute ulcers Alcohol abuse GERD LATA CASE RESIDENT Dec 04, 2024 12:04
--- NOTE | 2024-12-04 21:50 | DVHPN2 ---
Progress Note - Dictate Date Seen: Dec 04, 2024 (Late entrytime of visit 2 pm) Medical Necessity Reason Pt with a Central, PICC or Fol: No Subjective No new complaints Patient is tolerating diet No further episodes of GI bleeding or coffee-ground emesis vital signs Vital Sign Date Time Temp Pulse Resp B/P (MAP) Pulse Ox O2 Delivery O2 Flow Rate FiO2 12/04/24 08:51 97.8 69 19 126/83 (97) 97 97.8 12/04/24 08:00 Room Air* 0 21 Total Intake and Output 12/03/24 12/03/24 12/04/24 15:00 23:00 07:00 Intake Total 100 ml 0 ml 250 ml Balance 100 ml 0 ml 250 ml objective General Appearance: Alert, Oriented X3, Cooperative, No acute distress HEENT: Atraumatic, PERRLA, EOMI, Mucous membrane moist/pink Respiratory: Clear to auscultation, Normal air movement Cardiovascular: Regular rate, Normal S1, Normal S2, No murmurs, no chest wall tenderness Abdominal: NO distention, no tenderness, bowel sounds present, no scars noted Extremities: No clubbing, No cyanosis, No edema, Normal pulses, No tenderness/swelling Skin: No rashes, No breakdown, No significant lesion Neuro: Normal gait, Normal speech, Strength at 5/5 X4 ext, Normal tone, Sensation intact, Cranial nerves 3-12 NL, Reflexes 2+ Psych/Mental Status: Mental status NL, Mood NL laboratory and microbiology Laboratory Tests 12/04/24 06:28 12/02/24 23:50 Test 12/02/24 23:50 Range/Units Serum Glucose 101 74-106 mg/dL Problems(with codes): (1) Hiatal hernia with gastroesophageal reflux disease and esophagitis (2) GI bleed (3) Abdominal pain (4) Nausea and vomiting Prognosis Plan Discharge planning is in progress Patient is Protonix 40 mg p.o. twice a day Carafate 1 g p.o. 2 times a day DC aspirin NSAIDs ; outpatient follow up with in 4-6 weeks or as needed EGD results discussed with the patient Patient had been taking moderate alcohol prior to admission, he was counseled about discontinuing alcohol Plan discussed with: Patient TIMMY BRIDGES MD Dec 04, 2024 21:50
== END 2024-12-04 14:32 | disposition home or self-care (01) | DRG 382 ==
LOC: EDSEX 23:31 → ER 23:31 → OVERFLOW 12-03 03:58 → CENTRAL 12-03 14:53
PROVIDERS: ADMIT Internal Medicine Geriatric Medicine; ATTEND Internal Medicine Geriatric Medicine
PROC: 0DB68ZX Excision of Stomach, Via Natural or Artificial Opening Endoscopic, Diagnostic (ICD-10-PCS; 2024-12-03)
PROC: 0DB58ZX Excision of Esophagus, Via Natural or Artificial Opening Endoscopic, Diagnostic (ICD-10-PCS; 2024-12-03)
PROC: 0DB98ZX Excision of Duodenum, Via Natural or Artificial Opening Endoscopic, Diagnostic (ICD-10-PCS; principal; 2024-12-03 13:24)
DX: K22.11 Ulcer of esophagus with bleeding (principal); K44.9 Diaphragmatic hernia without obstruction or gangrene; K29.71 Gastritis, unspecified, with bleeding; D64.9 Anemia, unspecified; K21.9 Gastro-esophageal reflux disease without esophagitis; F10.10 Alcohol abuse, uncomplicated; Y90.9 Presence of alcohol in blood, level not specified; Z88.8 Allergy status to other drugs, medicaments and biological substances; Z90.49 Acquired absence of other specified parts of digestive tract
CPT/HCPCS: 36415; 80053; 80307; 81001; 83605; 83690; 85014; 85018; 85025; 85610; 85730; 86850; 86900; 86901; 96361; 96374; 96375; G0378; J2003; J2405; J2470; J2704